=== PATIENT | male | born 1990 | race American Indian/Alaskan Native ===

== ENCOUNTER 2022-02-05 10:32 | Emergency (ER) | payer SELFPAY ==
[2022-02-05 11:47] VITALS: BP 130/88
[2022-02-05] MEDS ORDERED: MORPHINE 2 MG/1 ML INJ IV ONE (13:39)
[2022-02-05] MEDS ORDERED: KETOROLAC 30 MG/1 ML INJ IV ONE (13:39)
--- NOTE | 2022-02-05 14:08 | Emergency Department Report ---
- General Chief Complaint: Extremity Injury, Upper Stated Complaint: FINGER PAIN Time Seen by Provider: 02/05/22 13:19 Source: patient Mode of arrival: Ambulatory Limitations: No Limitations - History of Present Illness Initial Comments: 31 yo male German-speaking patient with no medical problems came in complaining of severe left fifth finger pain and swelling which has gotten worse over the last 5 days. Patient is right-hand dominant patient denies injury or known bite, and states that he just woke up with this finger in pain. Patient denies any alleviating factors, but palpation and movement make the pain worse. Unknown tetanus status. Denies previous similar. - Related Data Previous Rx's Medication Instructions Recorded Last Taken Type Ciprofloxacin/Ciprofloxa HCl 500 mg PO BID #28 02/05/22 Unknown Rx [Ciprofloxacin ER 500 mg Tablet] Ibuprofen [Motrin] 600 mg PO Q8H PRN #28 tablet 02/05/22 Unknown Rx metroNIDAZOLE [Flagyl] 500 mg PO Q12HR #28 tab 02/05/22 Unknown Rx Allergies Allergy/AdvReac Type Severity Reaction Status Date / Time No Known Allergies Allergy Unverified 02/05/22 11:47 ED Review of Systems ROS: Stated complaint: FINGER PAIN Other details as noted in HPI Comment: All other systems reviewed and negative Constitutional: denies: chills, fever Eyes: denies: eye pain, eye discharge, vision change ENT: denies: ear pain, throat pain Respiratory: denies: cough, shortness of breath, wheezing Cardiovascular: denies: chest pain, palpitations Endocrine: no symptoms reported Gastrointestinal: denies: abdominal pain, nausea, diarrhea Genitourinary: denies: urgency, dysuria Musculoskeletal: joint swelling, arthralgia. denies: back pain Skin: denies: rash, lesions Neurological: denies: headache, weakness, paresthesias Psychiatric: denies: anxiety, depression Hematological/Lymphatic: denies: easy bleeding, easy bruising ED Past Medical Hx - Past Medical History Previous Medical History?: No - Surgical History Past Surgical History?: No - Medications Home Medications: Home Medications Medication Instructions Recorded Confirmed Last Taken Type Ciprofloxacin/Ciprofloxa HCl 500 mg PO BID #28 02/05/22 Unknown Rx [Ciprofloxacin ER 500 mg Tablet] Ibuprofen [Motrin] 600 mg PO Q8H PRN #28 tablet 02/05/22 Unknown Rx metroNIDAZOLE [Flagyl] 500 mg PO Q12HR #28 tab 02/05/22 Unknown Rx ED Physical Exam - General Limitations: Language Barrier (Family member available for translation) General appearance: alert, in no apparent distress, other (Appears extremely uncomfortable) - Head Head exam: Present: atraumatic, normocephalic - Eye Eye exam: Present: normal appearance, PERRL, EOMI - ENT ENT exam: Present: mucous membranes moist - Neck Neck exam: Present: normal inspection - Respiratory Respiratory exam: Absent: respiratory distress - Cardiovascular Cardiovascular Exam: Present: regular rate, normal rhythm. Absent: systolic murmur, diastolic murmur, rubs, gallop - GI/Abdominal GI/Abdominal exam: Present: soft, normal bowel sounds - Rectal Rectal exam: Present: deferred - Extremities Exam Extremities exam: Present: normal inspection - Expanded Upper Extremity Exam Left Hand Wrist exam: Present: other (Fifth finger of left hand is only abnormal finding and is concerning for flexor tenosynovitis) Hand L/R Front: 1 - Positive: other (Left fifth finger concerning for flexor tenosynovitis: Pain on passive extension, finger in flexed position at rest, tenderness along the sheath, and symmetric swelling along the entire digit). Negative: laceration, abrasion, nail injury (#), foreign body, amputation, avulsion - Back Exam Back exam: Present: normal inspection - Neurological Exam Neurological exam: Present: alert, oriented X3 - Psychiatric Psychiatric exam: Present: normal affect, normal mood, anxious - Skin Skin exam: Present: warm, dry, intact, normal color. Absent: rash ED Course Vital Signs 02/05/22 11:45 Temperature 98.4 F Pulse Rate 55 L Respiratory 18 Rate Blood Pressure 130/88 [Left] O2 Sat by Pulse 99 Oximetry - Reevaluation(s) Reevaluation #1: 02/05/22 Patient requested to sign out AGAINST MEDICAL ADVICE. Patient understood the benefits of hospitalization and the risks of leaving, and the patient was deemed competent to make this decision. ED Medical Decision Making - Lab Data Result diagrams: 02/05/22 13:53 02/05/22 13:53 - Medical Decision Making 31-year-old male with no past medical history presents complaining of severe pain and swelling in his left fifth finger which started approximately 5 days ago with unknown cause. Patient denies previous similar. Vital signs are unremarkable, but physical exam is concerning for a swollen and exquisitely tender left fifth finger which is consistent with infectious flexor tenosynovitis. Critical care attestation.: If time is entered above; I have spent that time in minutes in the direct care of this critically ill patient, excluding procedure time. ED Disposition Clinical Impression: Flexor tenosynovitis of finger Disposition: LEFT AGAINST MEDICAL ADVICE Is pt being admited?: No Does the pt Need Aspirin: No Condition: Stable Instructions: Tenosynovitis Additional Instructions: If your symptoms do not respond to oral antibiotics, please return to this or another emergency department [facility]. Prescriptions: Ciprofloxacin/Ciprofloxa HCl [Ciprofloxacin ER 500 mg Tablet] 500 mg PO BID #28 metroNIDAZOLE [Flagyl] 500 mg PO Q12HR #28 tab Ibuprofen [Motrin] 600 mg PO Q8H PRN #28 tablet PRN Reason: Pain Referrals: GUILLE CRUZ MD [Primary Care Provider] - 3-5 Days Forms: AMA Form Time of Disposition: 15:20 Print Language: GUINEAN
[2022-02-05 14:10] LABS: Basophils # (Auto) 0.1 K/mm3 (0.0-0.1); Basophils % (Auto) 0.8 % (0.0-1.8); Eosinophils # (Auto) 0.4 K/mm3 (0.0-0.4); Eosinophils % (Auto) 4.3 % (0.0-4.3); Lymphocytes # (Auto) 1.7 K/mm3 (1.2-5.4); Lymphocytes % (Auto) 17.5 % (13.4-35.0); Mean Corpuscular HGB Conc 37 % (32-34); Mean Corpuscular Volume 80 fl (84-94); Monocytes # (Auto) 0.7 K/mm3 (0.0-0.8); Monocytes % (Auto) 7.3 % (0.0-7.3); Platelet Count 274 K/mm3 (140-440); Red Blood Count 5.24 M/mm3 (3.65-5.03); Red Cell Distribution Width 14.1 % (13.2-15.2)
[2022-02-05 14:21] LABS: INR 0.99 (0.87-1.13)
[2022-02-05 14:22] LABS: Partial Thromboplastin Time 31.6 Sec. (24.2-36.6)
[2022-02-05 14:27] LABS: BUN/Creatinine Ratio 16; Blood Urea Nitrogen 14 mg/dL (9-20); Calcium 9.5 mg/dL (8.4-10.2); Hemolysis Index 0
[2022-02-05] MEDS ORDERED: TETANUS,DIPHTHERIA TOXOID ADULT 0.5 ML INJ IM ONE (14:30)
[2022-02-05 14:36] LABS: Hemoglobin 15.4 gm/dl (11.8-15.2)
[2022-02-05] MEDS ORDERED: TETANUS,DIPH,PERTUSS(ACELL) VACCINE 0.5 ML SYRINGE IM ONE (14:43)
--- NOTE | 2022-02-05 14:53 | XRay Report ---
LEFT HAND 3 VIEWS INDICATION / CLINICAL INFORMATION: Swelling and pain along left little finger. Possible osteomyelitis. COMPARISON: None available. FINDINGS: BONES and JOINT(S): No acute fracture or subluxation. No suspicious cortical destruction. SOFT TISSUES: Moderate edema is seen throughout the little finger with asymmetric swelling noted dors ally at the PIP joint. No soft tissue defect or significant soft tissue gas is identified. No radiopa que foreign body is seen. No significant abnormality elsewhere along the hand. ADDITIONAL FINDINGS: None. IMPRESSION: Left little finger edema without radiographic evidence of acute osteomyelitis. Signer Name: eSan Ely MD Signed: 02/05/2022 2:48 PM Workstation Name: [id number]
== END 2022-02-05 16:27 | disposition left against medical advice (07) ==
LOC: ED 10:32
DX: M65.849 Other synovitis and tenosynovitis, unspecified hand (principal); Z79.899 Other long term (current) drug therapy
CPT/HCPCS: 36415; 73140; 80048; 85025; 85610; 85730; 90471; 90714; 90715; 96374; 96375; 99284; J1885; J2270

== ENCOUNTER 2022-02-08 10:48 | Emergency (ER) | payer SELFPAY ==
[2022-02-08] MEDS ORDERED: oxyCODONE /ACETAMINOPHEN 5-325MG TAB PO ONE ×2 (14:25→19:31)
[2022-02-08] MEDS ORDERED: LIDOCAINE (1%) 10 MG/1 ML VIAL 20 ML MDV INFILTRATI ONE (14:25)
--- NOTE | 2022-02-08 14:49 | Emergency Department Report ---
Upper Extremity - HPI Chief Complaint: Extremity Injury, Lower Stated Complaint: LFT HAND SWOLLEN Time Seen by Provider: 02/08/22 12:17 Occurred When: >5 Days Severity: moderate Symptoms: Yes Pain with Movement, Yes Limited Range of Movement, Yes Swelling, No Deformity, No Numbness, No Weakness, No Bruising/Ecchymosis, No Laceration or Abrasion Other History: 31 yo male Sudanese-speaking patient with no medical problems came in complaining of severe left fifth finger pain and swelling which has gotten worse over the last 5 days. Patient is right-hand dominant patient denies injury or known bite, and states that he just woke up with this finger in pain. Patient initially was seen here in the emergency department on 02/05/2022, however left AMA. He was sent home with some antibiotics ciprofloxacin and Flagyl which she states he has been taking. Patient denies any alleviating factors, but palpation and movement make the pain worse. Unknown tetanus status. Denies previous episode of hand pain, he denies being bitten denies injury ED Review of Systems ROS: Stated complaint: LFT HAND SWOLLEN Other details as noted in HPI Constitutional: chills Respiratory: no symptoms reported Musculoskeletal: joint swelling, arthralgia Skin: change in color Neurological: denies: headache ED Past Medical Hx - Medications Home Medications: Home Medications Medication Instructions Recorded Confirmed Last Taken Type Ciprofloxacin/Ciprofloxa HCl 500 mg PO BID #28 02/05/22 Unknown Rx [Ciprofloxacin ER 500 mg Tablet] metroNIDAZOLE [Flagyl] 500 mg PO Q12HR #28 tab 02/05/[address] [Lenora Meyer] 75 mg PO BID PRN #30 tablet 02/08/22 Unknown Rx LORazepam [Ativan] 1 mg PO QHS PRN #10 tab 02/08/22 Unknown Rx oxyCODONE /ACETAMINOPHEN [Percocet 1 tab PO Q6HR PRN #12 tablet 02/08/22 Unknown Rx 5/325] predniSONE [Deltasone] 40 mg PO QDAY #10 tab 02/08/22 Unknown Rx Upper Extremity Exam - Exam General: Vital signs noted. No distress. Alert and acting appropriately. Head and Torso: No HEENT Abnormality, No Neck Tenderness, No Chest/Lungs Abnormality, No Abdominal Tenderness, No Back Tenderness Shoulder Exam: No Shoulder Tenderness, No Clavicle Tenderness, No Normal Range of Motion in Shoulder, No Shoulder Deformity, No AC Joint Tenderness Arm Exam: No Arm/Humerus Tenderness, No Arm Deformity Elbow: No Elbow Tenderness, No Normal Range of Motion in Elbow, No Elbow Deformity Forearm: No Forearm Tenderness, No Forearm Deformity, No Pain with Pronation, No Pain with Supination Wrist: No Wrist Tenderness, No Normal ROM in Wrist, No Wrist Deformity, No Snuffbox Tenderness, No Pain with Axial Thumb Compression Hand: Yes Hand Tenderness, Yes Digit Tenderness, Yes Tendon Dysfunction, No Hand Deformity, No Normal ROM in Digit(s) CMS Exam: Yes Normal Distal Pulses, Yes Normal Capillary Refill, Yes Normal Dist al Sensation, No Broken Skin Hand L/R Front: 1 - Swelling erythema and tenderness palpable pulse pocket. Patient is unable to flex extend or bend the finger. Cap refill intact ED Course Vital Signs 02/08/22 10:53 Temperature 99.0 F Pulse Rate 90 Respiratory 18 Rate Blood Pressure 136/86 [Right] O2 Sat by Pulse 100 Oximetry - Reevaluation(s) Reevaluation #1: 02/08/22 15:[address] Sanju Stoll orthopedic. ED Medical Decision Making - Lab Data Result diagrams: 02/08/22 14:54 02/08/22 14:54 Laboratory Results - last 24 hr 02/08/22 02/08/22 02/08/22 14:54 14:54 14:54 WBC 8.8 RBC 5.22 H Hgb 15.3 H Hct 41.8 MCV 80 L MCH 29 MCHC 37 H RDW 13.6 Plt Count 306 ESR 18 Sodium 131 L Potassium 4.6 Chloride 95.1 L Carbon Dioxide 22 Anion Gap 19 BUN 10 Creatinine 0.8 Estimated GFR > 60 BUN/Creatinine Ratio 13 Glucose 95 Lactic Acid 0.80 Calcium 9.5 C-Reactive Protein 6.90 H - Medical Decision Making 31 yo male Sudanese-speaking patient with no medical problems came in complaining of severe left fifth finger pain and swelling which has gotten worse over the last 5 days. Patient is right-hand dominant patient denies injury or known bite, and states that he just woke up with this finger in pain. Patient initially was seen here in the emergency department on 02/05/2022, however left AMA. He was sent home with some antibiotics ciprofloxacin and Flagyl which she states he has been taking. Patient denies any alleviating factors, but palpation and movement make the pain worse. Unknown tetanus status. Denies previous episode of hand pain, he denies being bitten denies injury. Patient is afebrile, he is nontoxic-appearing, there is intact cap refill and intact pulses. X-ray from 2 days ago shows no signs osteomyelitis, his labs today are reassuring. No WBCs, his lactic is also normal. I reached out to the orthopedic surgeon Dr. Bills at 1455, who recommended "patient needs to see a hand surgeon, if no white count on his WBC, obtaining hand splints, pain medicines and have him referred to hand surgeon for". 1605 Attempted reaching a hand surgeon around the area on patient's behalf, unable to get appointment, unable to come to [facility] and see patient out side. 1730 Vital signs are stable, patient is nontoxic-appearing, pain has been addressed to the emergency department. His labs are all reassuring with reactive exception of the CRP. Based on this findings I have placed patient on a finger splint, antibiotics, and referral to [facility] per Dr. Bills's recommendation. I have instructed all of this with patient using the Sudanese steam drier operator line, patient verbalized understanding of everything of discussed. He switched his pain management from ibuprofen to Percocet, also put on some steroids to help with the swelling, and Rx for diclofenac instead of ibuprofen 600. Patient remained stable nontoxic-appearing, afebrile, ambulating steadily without assistance. Gone over ED findings with patient as well as plan for follow-up. Also discussed return precautions with patient, all questions and concerns addressed. Patient is stable to be discharged follow-up outpatient. Audio voice dictation device used, hence the chart might contain some dictation errors, mispronunciations, wrong spelling and wrong verbiage.. Critical care attestation.: If time is entered above; I have spent that time in minutes in the direct care of this critically ill patient, excluding procedure time. ED Disposition Clinical Impression: Flexor tenosynovitis of finger, Hand pain, left Disposition: 01 HOME / SELF CARE / HOMELESS Is pt being admited?: No Condition: Stable Instructions: Infectious Finger Tenosynovitis Additional Instructions: La tnosynovite est une inflammation d'un tendon et de la manche de tissu brigido recouvre le tendon (gaine tendineuse). Un tendon est un cordon de tissu brigido relie le muscle l'os. Normalement, un tendon glisse en douceur l'intrieur de sa gaine tendineuse. La tnosynovite limite le mouvement du tendon et tissus environnants, ce brigido peut causer de la douleur et de la raideur. La tnosynovite peut toucher n'importe quel tendon et gaine tendineuse. Les zones couramment touches comprennent les tendons dans: [place]. Bras. Main. [place]. [place]. Le pied. paule. Quelles sont les causes ? La principale cause de cette condition est l'usure au surya du temps brigido entrane de lgres dchirures au tendon. Les autres causes possibles incluent: Une blessure au tendon ou la gaine du tendon. Une maladie brigido provoque une inflammation dans le corps. Une infection brigido se propage au tendon et la gaine du tendon partir d'une peau plaie. Une infection dans une autre partie du corps brigido se propage au tendon et gaine tendineuse lidia le sang. Comment sixto est-il trait ? Le traitement de cette condition dpend de la cause. Si la tnosynovite n'est pas cause par une infection, le traitement peut comprendre : Repos. Maintien du tendon en place (immobilisation) dans une attelle, une attelle ou une charpe. Prendre hannah AINS pour rduire la douleur et l'enflure. Une dose (injection) de mdicament pour aider rduire la douleur et l'enflure (chi). Glacer ou cutting machine operator helper de la chaleur tamia la zone touche. Thrapie physique. Chirurgie pour librer le tendon dans la gaine ou pour rparer les dommages au tendon ou gaine tendineuse. La chirurgie peut mark pratique si les autres traitements ne suffisent pas aider soulager les symptmes. Si la tnosynovite est cause par une infection, le traitement peut inclure hannah antibiotiques kisha par voie intraveineuse. Dans certains christian, une intervention chirurgicale peut mark ncessaire pour drainer le liquide de la gaine tendineuse ou pour retirer la gaine tendineuse Dans votre christian, vous avez besoin d'une intervention chirurgicale pour le rparer. N'hsitez pas revenir aux urgences en christian d'aggravation hannah douleurs. Assurez- vous de terminer tous les antibiotiques que vous avez la raghav. Prenez de l'ibuprofne 3 fois par jour au besoin pour une douleur modre, puis prenez le Percocet toutes les 6 heures au besoin pour une douleur intense. Je vous ai aussi crit pour un peu d'Ativan pour vous aider dormir, ne le prenez que la nuit au besoin. Gardez le bras lev au-dessus du niveau du cur afin qu'il amliore le gonflement, vous pouvez galement bnficier de mettre de la glace dessus pour que le gonflement s'amliore. Assurez-vous de faire un suivi avec un spcialiste de la [facility], comme nous en avons discut. Sinon, vous pouvez galement vous rendre la clinique [facility] que j'ai galement incluse dans les papiers de sortie. Referrals: PRIMARY CARE,MD [Primary Care Provider] - 3-5 Days [facility] [Outside] - 3-5 Days (shital an Appointment Call , Saturday-Saturday, from 6 a.m. to 11 p.m. to schedule your appointment. If you are an existing [facility] patient and have a [employer] account, visit [employer] to request your appointment online.)
[2022-02-08 14:53] VITALS: BP 117/77
[2022-02-08 15:34] LABS: Mean Corpuscular HGB Conc 37 % (32-34); Mean Corpuscular Volume 80 fl (84-94); Platelet Count 306 K/mm3 (140-440); Red Blood Count 5.22 M/mm3 (3.65-5.03); Red Cell Distribution Width 13.6 % (13.2-15.2)
[2022-02-08 15:43] LABS: Hematocrit 41.8 % (35.5-45.6); Hemoglobin 15.3 gm/dl (11.8-15.2)
[2022-02-08 16:03] LABS: BUN/Creatinine Ratio 13; Blood Urea Nitrogen 10 mg/dL (9-20); Calcium 9.5 mg/dL (8.4-10.2); Hemolysis Index 171
[2022-02-08 16:24] LABS: Erythrocyte Sedimentation Rate 18 mm/Hr (0-20)
[2022-02-08] MEDS ORDERED: SODIUM CHLORIDE 0.9% 1000 ML 1,000 ML IV ONE (17:08)
[2022-02-08] MEDS ORDERED: VANCOMYCIN/NS 1 GM/250 ML 1 GM/250 ML BAG IV ONE (17:09)
[2022-02-08] MEDS ORDERED: MORPHINE 4 MG/1 ML INJ IM ONE (17:47)
[2022-02-08] MEDS ORDERED: KETOROLAC 30 MG/1 ML INJ IV ONE (19:31)
[2022-02-08] MEDS ORDERED: methylPREDNISolone Sod Succinate 125 MG/2 ML INJ IV ONE (19:55)
== END 2022-02-08 21:02 | disposition home or self-care (01) ==
LOC: ED 10:48
DX: S63.619A Unspecified sprain of unspecified finger, initial encounter (principal); M79.642 Pain in left hand; X58.XXXA Exposure to other specified factors, initial encounter; Y93.89 Activity, other specified; Y92.89 Other specified places as the place of occurrence of the external cause; Y99.8 Other external cause status
CPT/HCPCS: 29130; 36415; 80048; 82140; 85027; 85652; 86140; 96365; 96366; 96372; 96375; 99283; J1885; J2270; J3370; J7030